=== PATIENT | female | born 1985 | race Caucasian/White ===

== ENCOUNTER 2016-12-17 12:58 | Emergency (ER) | payer OTHER ==
[~2016-12-17] VITALS: Ht 157.5 cm; Wt 49.5 kg
[~2016-12-17 12:58] MED LIST: FLEXERIL10 MG PO; LYRICA150 MG PO; NO DOZ100 MG PO; OXYCONTIN30 MG PO; PREDNISONE10 MG PO; PROZAC20 MG PO; ROXICODONE15 MG PO
[2016-12-17 13:03] VITALS: BP 123/89
== END 2016-12-17 14:40 | disposition left against medical advice (07) ==
LOC: EME 12:58
DX: Z53.21 Procedure and treatment not carried out due to patient leaving prior to being seen by health care provider (principal)

== ENCOUNTER 2016-12-31 19:54 | Emergency (ER) | payer OTHER ==
[~2016-12-31] VITALS: Ht 157.5 cm; Wt 50.0 kg
[2017-01-01] VITALS: BP 112/71
== END 2017-01-01 00:36 | disposition home or self-care (01) ==
LOC: EME 19:54
DX: T40.1X1A Poisoning by heroin, accidental (unintentional), initial encounter (principal); F17.200 Nicotine dependence, unspecified, uncomplicated
CPT/HCPCS: 71010; 99281; 99285; J2060; J2310; J2405; J7030